=== PATIENT | female | born 2000 | race Caucasian/White ===

== ENCOUNTER 2025-04-30 08:43 | Outpatient (REF) | payer MEDICARE, SELFPAY ==
--- OUTSIDE RECORDS SUMMARY | 2025-04-25 10:00 | XMS_ITS | Encounter Summary ---
Author Organization [employer] Address [address] [place] [address] Care Team Providers Care Lead Sql Developer Name Role Phone Jayy Garcia Primary Care Provider [phone] Encounter Details Date Type Department Care Team ([facility] st Contact Info) Description 04/25/2025 10:00 AM EST Office Visit [facility] [address] [place], [place] [id number] Darlene Marrero DO [address] [place] [address] AGE (acute gastroenteritis) (Primary Dx) Social History Tobacco Use Types Packs/Day Years Used Date Smoking Tobacco: Never Passive Smoke Exposure: Never Smokeless Tobacco: Never Alcohol Use Standard Drinks/Week Comments Never 0 (1 standard drink = 0.6 oz pur e alcohol) Depression Answer Date Recorded Patient Health Questionnaire-9 Score 0 04/24/2025 Patient Health Questionnaire-9 Score 0 04/24/2025 Last PHQ-9: Questionnaire Data Not on file 1 06/24/2024 Housing Stability Answer Date Recorded What is your housing situation today? I have felisa rebolledo 04/24/[address] you li ve. Do you have problems with any of the following? None of the above 04/24/2025 Food Insecurity Answer Date Recorded Within the past 12 months, y ou worried that your food would run out before you got money to buy more: Never True 04/24/2025 Within the past 12 months,th e food you bought just didn't last and you didn't have enough money to get more: Never True 10/2024 Transportation Answer Date Recorded In the past 12 months, has l ack of transportation kept you from medical appts, meetings, work or from getting things needed for daily living? No 04/24/2025 Utilities Answer Date Recorded In the past 12 months, has t he electric, gas, oil or water company threatened to shut off services in your home? No 04/24/2025 Depression Answer Date Recorded Patient Health Questionnaire-2 Score 0 04/24/2025 Internet Access Answer Date Recorded Internet Access Q1 No 04/24/2025 Internet Access Q2 I do not want or need it 10/2024 Comments No Sex and Gender Information Value Date Recorded Sex Assigned at Female 03/28/2025 9:40 AM EDT Legal Sex Female 9:32 AM EDT Gender Identity Female 03/28/2025 9:40 AM EDT Sexual Orientation Straight 04/23/2025 11 :20 AM EST documented as of this encounter Last Filed Vital Signs Vital Sign Reading Time Taken Comments Blood Pressure 104/64 04/25/2025 10:11 AM EST Pulse 94 04/25/2025 10:11 AM EST Temperature 36.7 C (98.1 F) 04/25/2025 10:11 AM EST Respiratory Rate 20 04/25/2025 10:11 AM EST Oxygen Saturation 96% 04/25/2025 10:11 AM EST Inhaled Oxygen Concentration - - Weight 67.1 kg (148 lb) 04/25/2025 10:11 AM EST Height 154.9 cm (5' 1 ) 04/25/2025 10:11 AM EST Body Mass Index 27.96 04/25/2025 10:11 AM EST documented in this encounter Progress Notes * Darlene Marrero, DO - 04/25/2025 10:00 AM EST SUBJECTIVE Mirtha Osman is a 24 y.o. female who presents for Sick Visit. She presents to [place] today c/o vomiting and diarrhea. She says she was here yesterday for [employer] appointment and was feeling fine. She says that she was fasting last night for labs this morning but when she woke up she started vomiting. She doesn't feel good. She has constantly been in the bathroom with 5-6 episodes of nb, nb vomiting and 2 episodes of loose diarrhea. She says that her symptoms came on quickly this morning. She has had much of an appetite for the last couple days. No URI symptoms. No fevers. She says she hasn't been to work in 1 week and she doesn't know of any sick contacts. 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 Negative for activity change, chills, fever and unexpected weight change. HENT: Positive for postnasal drip and rhinorrhea. Negative for sore throat. Respiratory: Negative for cough and shortness of breath. Cardiovascular: Negative for chest pain, palpitations and leg swelling. Gastrointestinal: Positive for diarrhea, nausea and vomiting. Negative for abdominal pain and constipation. Neurological: Negative for weakness and headaches. Patient Active Problem List Diagnosis Raynaud's disease No Known Allergies OBJECTIVE Visit Vitals BP 104/64 (BP Location: Left arm, Patient Position: Sitting, BP Cuff Size: Adult) Pulse 94 Temp 98.1 ??F (36.7 ??C) (Oral) Resp 20 Ht 5' 1 (1.549 m) Wt 148 lb (67.1 kg) LMP 04/22/2025 SpO2 96% BMI 27.96 kg/m?? OB Status Having periods Smoking Status Never BSA 1.7 m?? Physical Exam Constitutional: General: She is not in acute distress. Appearance: Normal appearance. Cardiovascular: Rate and Rhythm: Normal rate and regular rhythm. Heart sounds: Normal heart sounds. No murmur heard. Pulmonary: Effort: Pulmonary effort is normal. Breath sounds: Normal breath sounds. No wheezing or rhonchi. Abdominal: General: Bowel sounds are normal. Palpations: Abdomen is soft. There is no mass. Tenderness: There is no abdominal tenderness. There is no guarding or rebound. Neurological: General: No focal deficit present. Mental Status: She is alert and oriented to person, place, and time. Cranial Nerves: No cranial nerve deficit. Motor: No weakness. Gait: Gait normal. Psychiatric: Mood and Affect: Mood normal. Assessment/Plan Diagnoses and all orders for this visit: AGE (acute gastroenteritis) Likely viral, well-appearing -provided reassurance -d/w pt importance of staying well-hydrated -trial zofran prn -advance PO intake as tolerated -advised RTC if sx change or worsen, she agrees with plans --Follow-up with PCP as scheduled or sooner prn-- Current Outpatient Medications: acetaminophen (Tylenol Extra Strength) 500 MG tablet, Take 1 tablet (500 mg) by mouth every 6 (six)hours if needed for mild pain or fever., Disp: 40 tablet, Rfl: 1 albuterol 108 (90 Base) MCG/ACT inhaler, Inhale 2 puffs every 4 (four) hours if needed for wheezing., Disp: 18 g, Rfl: 0 albuterol 108 (90 Base) MCG/ACT inhaler, INHALE 1 PUFF INTO THE LUNGS THREE TIMES DAILY, Disp: , Rfl: ARIPiprazole (Abilify) 10 MG disintegrating tablet, Take 5 mg by mouth Once per day., Disp: , Rfl: benzonatate (Tessalon) 200 MG capsule, Take 1 capsule by mouth every 6 (six) hours during the day.,Disp: , Rfl: escitalopram (Lexapro) 10 MG tablet, Take 10 mg by mouth Once per day., Disp: , Rfl: ondansetron (Zofran) 4 MG tablet, Take 1 tablet (4 mg) by mouth every 8 (eight) hours if needed fornausea or vomiting., Disp: 20 tablet, Rfl: 0 Scribe Attestation: Charli Johnson, am serving as a scribe to document services personally performed by Darlene Ribera, based on the patient's response to questions by provider and provider's statements to me. 04/25/25 12:11 PM Physicians Attestation: Darlene Johnson DO, have reviewed the information by the scribe, Charli Roberto, for accuracy and agree with its content. documented in this encounter Plan of Treatment Not on file documented as of this encounter Visit Diagnoses Diagnosis AGE (acute gastroenteritis)- Primary Other and unspecified noninfectious gastroenteritis and colitis documented in this encounter Additional Health Concerns Assessment Noted Time PHQ-9 Depression Total Score: 0 04/24/20 2:29 PM EST documented as of this encounter Care Teams Lead Sql Developer Relationship Specialty Start Date End Date Jayy Garcia FNP [address] [place] [phone] PCP - General Family Medicine 04/24/25 documented as of this encounter
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
--- OUTSIDE RECORDS SUMMARY | 2025-04-30 09:04 | XMS_ITS | Encounter Summary ---
Author Organization [facility] Address [address] [place] [address] [place] [phone] Phone Care Team Providers Care Dragsaw Operator Name Role Phone Carol Preciado MD Primary Care Provider Carol Preciado MD Unavailable [phone] Buddy Almaraz MD Unavailable Unknown, Unknown Primary Care Provider Raghav majano Pcp, Unknown Primary Care Provider Unavailabl e Encounter Details Date Type Department Care Team (Late st Contact Info) Description 10/27/2017 Telephone [facility] [address] [address] [address] [address] Social History Tobacco Use Types Packs/Day Years Used Date Smoking Tobacco: Never Assessed Comments Unknown Sex and Gender Information Value Date Recorded Sex Assigned at Not on file Legal Sex Female 10:55 AM EST Gender Identity Not on file Sexual Orientation Not on file documented as of this encounter Plan of Treatment Not on file documented as of this encounter Visit Diagnoses Not on filedocumented in this encounter Care Teams Dragsaw Operator Relationship Specialty Start Date End Date Carol Preciado MD [address] [place] [phone] [email or web address] PCP - General Pediatric Medicine 09/09/15 10/02/20 Unknown, Unknown, PCP - General 10/03/20 03/07/25 Pcp, Unknown PCP - General 03/08/25 Carol Preciado MD [address] [facility] [address] [place] [address] [email or web address] Insurance Assigned Provider 05/22/16 01/21/18 Buddy Almaraz MD [address] [facility] [address] [place] [address] [email or web address] Insurance Assigned Provider 03/01/20 04/26/20 documented as of this encounter Additional Source Comments The information contained in this document represents components of the legal health record. It is not the complete legal health record.[facility]
--- OUTSIDE RECORDS SUMMARY | 2025-04-30 09:05 | XMS_ITS | Encounter Summary ---
Author Organization [facility] Address [address] [place] [address] [place] [address] Phone Care Team Providers Care Food Taster Name Role Phone Carol Preciado MD Primary Care Provider Carol Preciado MD Unavailable Buddy Almaraz MD Unavailable Unknown, Unknown Primary Care Provider Raghav majano Pcp, Unknown Primary Care Provider Unavailabl e Reason for Visit * Reason Comments Medication Refill Encounter Details Date Type Department Care Team ([facility] st Contact Info) Description 09/30/2017 Refill [facility] [address] [address] Carol Preciado MD [facility] [address] [address] [email or web address] Medication Refill Social History Tobacco Use Types Packs/Day Years [...] on filedocumented in this encounter Care Teams Food Taster Relationship Specialty Start Date End Date Carol Preciado MD [address] [facility] [address] [place] [address] [email or web address] PCP - General Pediatric Medicine 09/09/15 10/02/20 Unknown, Radha, MD PCP - General 10/03/20 03/07/25 Pcp, Unknown PCP - General 03/08/25 Carol Preciado MD [address] [facility] [address] [place] [address] [email or web address] Insurance Assigned Provider 05/22/16 01/21/18 Buddy Almaraz MD [address] [place] [address] [email or web address] Insurance Assigned Provider 03/01/20 04/26/20 documented as of this encounter Additional Source Comments The information contained in this document represents components of the legal health record. It is not the complete legal health record.[facility]
--- OUTSIDE RECORDS SUMMARY | 2025-04-30 09:05 | XMS_ITS | Encounter Summary ---
Author Organization [facility] Address [address] [place] [address] [place] [address] Phone Care Team Providers Care Pick Up And Delivery Driver Name Role Phone Carol Preciado MD Primary Care Provider Carol Preciado MD Unavailable [phone] Buddy Almaraz MD Unavailable Unknown, Unknown Primary Care Provider Raghav majano Pcp, Unknown Primary Care Provider Unavailabl e Encounter Details Date Type Department Care Team (Late st Contact Info) Description 10/04/2017 Refill [address] [facility] of [address] [address] [address] [address] Social History Tobacco Use Types Packs/Day Years [...] on filedocumented in this encounter Care Teams Pick Up And Delivery Driver Relationship Specialty Start Date End Date Carol Preciado MD [address] [place] [address] [email or web address] PCP - General Pediatric Medicine 09/09/15 10/02/20 Unknown, Radha, PCP - General 10/03/20 03/07/25 Pcp, Unknown PCP - General 03/08/25 Carol Preciado MD [address] [facility] [address] [place] [address] [email or web address] Insurance Assigned Provider 05/22/16 01/21/18 Buddy Almaraz MD 115 [facility] [address] [place] [address] [email or web address] Insurance Assigned Provider 03/01/20 04/26/20 documented as of this encounter Additional Source Comments The information contained in this document represents components of the legal health record. It is not the complete legal health record.[facility]
--- OUTSIDE RECORDS SUMMARY | 2025-04-30 09:05 | XMS_ITS | Encounter Summary ---
Author Organization [employer] Address [address] [place] [address] Care Team Providers Care Event Staff Member Name Role Phone Jayy Garcia Primary Care Provider [phone] Encounter Details Date Type Department Care Team ([facility] st Contact Info) Description 04/26/2025 Results Follow-Up [facility] [address] [place] [address] Milvia Arauz NP [address] [place] [address] ECG 12 lead Social History Tobacco Use Types Packs/Day Years [...] AM EST documented as of this encounter Miscellaneous Notes * Result Encounter Note - Milvia Arauz NP - 04/26/2025 3:30 PM EST Attahced is EKG, documented in this encounter Plan of Treatment Not on file documented as of this encounter Visit Diagnoses Not on filedocumented in this encounter Additional Health Concerns Assessment Noted Time PHQ-9 Depression Total Score: 0 04/24/20 2:29 PM EST documented as of this encounter Care Teams Event Staff Member Relationship Specialty Start Date End Date Jayy Garcia FNP [address] [place] [phone] PCP - General Family Medicine 04/24/25 documented as of this encounter
--- OUTSIDE RECORDS SUMMARY | 2025-04-30 09:05 | XMS_ITS | Encounter Summary ---
Author Organization [facility] Address [address] [place] [address] [place] [phone] Phone Care Team Providers Care Tucking Machine Operator Name Role Phone Carol Preciado MD Primary Care Provider Carol Preciado MD Unavailable Buddy Almaraz MD Unavailable Unknown, Unknown Primary Care Provider Raghav majano Pcp, Unknown Primary Care Provider Unavailabl e Reason for Visit * Reason Comments Medication Refill Encounter Details Date Type Department Care Team ([facility] st Contact Info) Description 04/12/2017 Refill [facility] [address] [address] Carol Preciado MD [facility] [address] [address] [email or web address] Medication Refill Social History Tobacco Use Types [...] on filedocumented in this encounter Care Teams Tucking Machine Operator Relationship Specialty Start Date End Date Carol Preciado MD 132[address] [facility] [address] [place] [address] [email or web address] PCP - General Pediatric Medicine 09/09/15 10/02/20 Unknown, Radha, MD PCP - General 10/03/20 03/07/25 Pcp, Unknown PCP - General 03/08/25 Carol Preciado MD 132[address] [facility] [address] [place] [address] [email or web address] Insurance Assigned Provider 05/22/16 01/21/18 Buddy Almaraz MD [address] [place] [address] [email or web address] Insurance Assigned Provider 03/01/20 04/26/20 documented as of this encounter Additional Source Comments The information contained in this document represents components of the legal health record. It is not the complete legal health record.[facility]
--- OUTSIDE RECORDS SUMMARY | 2025-04-30 09:05 | XMS_ITS | Clinical Summary ---
Author Organization [employer] Address [address] [facility] [address] [place] [address] Care Team Providers Care Automotive Brake Technician Name Role Phone Jayy Garcia Primary Care Provider [phone] Allergies No known active allergies Medications ARIPiprazole (Abilify) 10 MG disintegrating tablet Take 5 mg by mouth Once per day. Active escitalopram (Lexapro) 10 MG tablet Take 10 mg by mouth Once per day. Active albuterol 108 (90 Base) MCG/ACT inhalerIndications: Shortness of breath on exertion Inhale 2 puffs every 4 (four) hours if needed for wheezing. 18 g 5 04/24/20 26 Active albuterol 108 (90 Base) MCG/ACT inhalerIndications: Shortness of breath on exertion INHALE 1 PUFF INTO THE LUNGS THREE TIMES DAILY 5 Active benzonatate (Tessalon) 200 MG capsuleIndications: Acute cough Take 1 capsule by mouth every 6 (six) hours during the day. 5 Active acetaminophen (Tylenol Extra Strength) 500 MG tablet Take 1 tablet (500 mg) by mouth every 6 (six) hours if needed for mild pain or fever. 40 tablet 1 5 04/25/20 26 Active ondansetron (Zofran) 4 MG tablet Take 1 tablet (4 mg) by mouth every 8 (eight) hours if needed for nausea or vomiting. 20 tablet 5 04/25/20 26 Active Active Problems Problem Noted Date Diagnosed Date Raynaud's disease 04/24/2025 Assessment & Plan (04/30/2025 6:37 AM EST): Encounters Date Type Department Care Team Description 04/26/2025 Results Follow-Up [facility] [address] [place] [id number] Milvia Arauz NP ECG 12 lead 04/25/2025 10:00 AM EST Office Visit [facility] [address] [address] Darlene Marrero DO AGE (acute gastroenteritis) (Primary Dx) 04/25/2025 Travel 04/24/2025 2:30 PM EST Office Visit [facility] [address] [place] [id number] Jayy Garcia FNP Overweight (BMI 25.0-29.9) (Primary Dx); Encounter to establish care; Raynaud's disease without gangrene; Tachycardia; Polydipsia; Other depression; Anxiety; Shortness of breath on exertion; Overweight; Encounter for screening for diabetes mellitus; Dietary counseling; Exercise counseling; Acute cough; S4 (fourth heart sound) 04/24/2025 Travel from Last 3 Months Social History Tobacco Use Types Packs/Day Years [...] Orientation Straight 04/23/2025 11 :20 AM EST Last Filed Vital Signs Vital Sign Reading [...] Mass Index 27.96 04/25/2025 10:11 AM EST Plan of Treatment Health Maintenance Due Date Last Done Comments HIV Screening 1999 Family Planning (PISQ) 08/24/2014 HPV Vaccines (1 - 3-dose series) 08/24/2014 Hepatitis C Screening 08/24/2017 DTaP/Tdap/Td Vaccines (1 - Tdap) 08/24/2018 Hepatitis B Vaccines (1 of 3 - 19+ 3-dose series) 08/24/2018 Pap Smear 08/24/2020 COVID-19 Vaccine (1 - 2023-2 5 season) 2025 Influenza Vaccine (#1) 2025 Alcohol/Substance Use Screening 04/24/2026 04/24/2025 Depression Screening 04/24/2026 04/24/2025, 04/24/2025 Disability Screening 04/24/2026 04/24/2025 SDOH Screening 04/24/2026 04/24/2025 Tobacco Screening 04/25/2026 04/25/2025 Zoster Vaccines (1 of 2) 08/24/2049 RSV Patients and Patients Aged 60 years or older (1 - 1-dose 75+ series) 08/24/2074 HIB Vaccines Aged Out No longer eligi ble based on patient's age to complete this topic Hepatitis A Vaccines Aged Out No long er eligible based on patient's age to complete this topic IPV Vaccines Aged Out No longer eligi ble based on patient's age to complete this topic Meningococcal B Vaccine Aged Out No l onger eligible based on patient's age to complete this topic Meningococcal Vaccine Aged Out No chente maria t eligible based on patient's age to complete this topic Pneumococcal Vaccine: Pediatrics (0 to 5 Years) and At-Risk Patients (6 to 49) Years Aged Out No longer eligible b ased on patient's age to complete this topic RSV under 20 months Aged Out No longe r eligible based on patient's age to complete this topic Rotavirus Vaccines Aged Out No longer eligible based on patient's age to complete this topic Procedures Procedure Name Priority Date/Time Associated Diagnosis Comments POCT GLYCATED HEMOGLOBIN, TOTAL Routine 04/24/2025 4:01 PM EST Overweight (BMI 25.0-29.9) Polydipsia Encounter for screening for diabetes mellitus POCT GLUCOSE Routine 04/24/2025 4:01 PM EST Overweight (BMI 25.0-29.9) Polydipsia Encounter for screening for diabetes mellitus ECG 12-LEAD Routine 04/24/2025 Tachycardia S4 (fourth heart sound) from Last 3 Months Results * POCT Hgb A1c (04/24/2025 4:01 PM EST) Hemoglobin A1C 5.2 4.0 - 5.7 % QC Media Lot # [id number] Lot# Expiration Date [id number] Blood 04/24/2025 4:01 PM EST Agata Rocha MD POINT OF CARE TEST ENTER/EDIT ORDERABLES Final Result * POCT Glucose (04/24/2025 4:01 PM EST) Glucose Blood, POC 125 60 - 200 mg/dL QC Media Lot # [id number] Lot# Expiration Date [id number] Blood Capillary blood specimen / Unknown 04/24/2025 4:01 PM EST us Agata Rocha MD POINT OF CARE TEST ENTER/EDIT ORDERABLES Final Result * ECG 12 lead (04/24/2025) us Milvia Arauz NP ECG ORDERABLES Final Result from Last 3 Months Insurance MEDICARE [facility] Care Teams Automotive Brake Technician Relationship Specialty Start Date End Date Jayy Garcia FNP [address] [place] [id number] PCP - General Family Medicine 04/24/25
--- OUTSIDE RECORDS SUMMARY | 2025-04-30 09:05 | XMS_ITS | Encounter Summary ---
Author Organization [employer] Address [address] [facility] [address] [place] [address] Care Team Providers Care Computer Technology Trainer Name Role Phone Jayy Garcia MATT Primary Care Provider [phone] Encounter Details Date Type Department Care Team (Latest Contact Info) Description 04/25/2025 Travel Social History Tobacco Use Types Packs/Day Years [...] AM EST documented as of this encounter Plan of Treatment Not on file documented as of this encounter Visit Diagnoses Not on filedocumented in this encounter Additional Health Concerns Assessment Noted Time PHQ-9 Depression Total Score: 0 04/24/20 2:29 PM EST documented as of this encounter Care Teams Computer Technology Trainer Relationship Specialty Start Date End Date Jayy Garcia FNP [address] [place] [id number] PCP - General Family Medicine 04/24/25 documented as of this encounter
[2025-04-30 11:10] LABS: MANUAL DIFF FLAG NO
[2025-04-30 11:33] LABS: Hematocrit 40.3 % (37.0-47.0); Hemoglobin 13.1 g/dl (12.0-16.0); Imm Gran Abs Auto 0.04 X10*3/uL (0.00-0.03); Imm Gran Pct Auto 0.5 % (0.0-0.4); Lymphocytes Absolute Auto 2.4 X10*3/uL (1.2-4.9); Mean Corpuscular HGB Conc 32.5 g/dl (31.0-35.0); Mean Corpuscular Hemoglobin 30.0 pg (27.0-33.0); Mean Corpuscular Volume 92.4 fL (80.0-98.0); NRBC Abs Auto 0.000 X10*3/uL (0.0-0.012); NRBC Pct Auto 0.0 /100WBC (0.0-0.2); Platelet Count 352 X10*3/uL (160-400); Red Blood Count 4.36 X10*6/uL (4.20-5.50); White Blood Count 8.8 X10*3/uL (4.8-10.8)
[2025-04-30 11:45] LABS: Alanine Aminotransferase 23 U/L (0-31); Albumin Level 4.1 g/dL (3.5-5.0); Alkaline Phosphatase 46 U/L (39-117); Anion Gap 13 (12-20); Aspartate Amino Transferase 27 U/L (5-31); Blood Urea Nitrogen 16 mg/dL (9-16); Calcium 9.3 mg/dL (8.4-10.2); Carbon Dioxide 23 mmol/L (22-29); Chloride 107 mmol/L (96-108); Cholesterol 175 mg/dL (<200); Estimated Glomerular Filt Rate > 60; HDL Cholesterol 70 mg/dL (>40); Potassium 4.5 mmol/L (3.3-5.1); Sodium 138 mmol/L (135-145); Total Protein 7.2 g/dL (6.5-8.0); Triglycerides 84 mg/dL (<150)
== END 2025-04-30 08:44 | disposition home or self-care (01) ==
LOC: HO.HHCL 08:43
PROVIDERS: PCP General Practice; Visit Provider General Practice
DX: Z76.89 Persons encountering health services in other specified circumstances (principal); R00.0 Tachycardia, unspecified; E66.3 Overweight
CPT/HCPCS: 36415; 80053; 80061; 84443; 85025